=== PATIENT | female | born 1990 | race African-American/Black ===

== ENCOUNTER 2019-04-03 00:12 | Emergency (ER) | payer MEDICAID ==
[2019-04-03] MEDS ORDERED: Dexamethasone 4 MG TAB ONE ×2 (00:40→06:57)
== END 2019-04-03 00:44 | disposition home or self-care (01) ==
LOC: MADERS 00:12
DX: J06.9 Acute upper respiratory infection, unspecified (principal); F17.210 Nicotine dependence, cigarettes, uncomplicated
CPT/HCPCS: 99283; J8540

== ENCOUNTER 2019-07-23 12:03 | Emergency (ER) | payer MEDICAID, OTHER ==
[~2019-07-23 12:03] MED LIST: Sodium Chloride 0.9% 1,000 ML BAG ONE
[2019-07-23] MEDS ORDERED: Acetaminophen 500 MG TAB ONE (12:31)
[2019-07-23 12:53] LABS: Bilirubin Negative (Negative); Blood, Urine Negative (Negative); Clarity Clear (Clear); Glucose, Urine (Dipstick) Negative (Negative); Leukocyte Negative (Negative); Nitrite Negative (Negative); Protein, Urine (Dipstick) Negative (Neg-Trace)
[2019-07-23 13:04] LABS: Anion Gap 10 mmol/L (10-20); BUN (Urea Nitrogen) 11 mg/dL (7.0-18.7); Calc. Creatinine Clearance 0 mL/min (70-130); Calcium 8.1 mg/dL (7.8-10.44); Carbon Dioxide 24 mmol/L (22-29); Chloride 105 mmol/L (98-107); Estimated GFR-MDRD Greater than 90; Glucose 86 mg/dL (70-105); Potassium 3.9 mmol/L (3.5-5.1); Sodium 135 mmol/L (136-145)
[2019-07-23 13:07] LABS: Hemoglobin 11.5 g/dL (12.0-16.0); Mean Corpuscular HGB CONC 29.2 g/dL (32.0-36.0); Mean Corpuscular Hemoglobin 25.6 pg (27.0-31.0); Mean Corpuscular Volume 87.7 fL (78.0-98.0); Mean Platelet Volume 7.4 fL (7.4-10.4); Platelet Count 330 thou/uL (130-400); White Blood Cell (WBC) Count 6.9 thou/uL (4.8-10.8)
[2019-07-23 13:28] LABS: MDiff Complete? YES; Manual Diff?? YES
[2019-07-23 13:29] LABS: Anisocytosis SLIGHT = 6-15 cells (100X) (0-5/hpf); Band 1 % (5-11); Lymphocytes 23 % (21-51); Monocytes 4 % (0-10); Neutrophil 72 % (42-75); Platelet Morphology Comment Appears Adequate
== END 2019-07-23 15:02 | disposition short-term general hospital (02) ==
LOC: MADERS 12:03
DX: O99.89 Other specified diseases and conditions complicating pregnancy, childbirth and the puerperium (principal); R10.30 Lower abdominal pain, unspecified; O99.331 Smoking (tobacco) complicating pregnancy, first trimester; F17.210 Nicotine dependence, cigarettes, uncomplicated; Z3A.01 Less than 8 weeks gestation of pregnancy; Z71.6 Tobacco abuse counseling
CPT/HCPCS: 80048; 81003; 84702; 85025; 96360; 99406; J7050